=== PATIENT | female | born 1950 | race Caucasian/White ===

== ENCOUNTER → 2017-06-24 | Outpatient (CLI) | payer BC, MEDICARE ==
[2016-01-22 11:00] VITALS: BP 114/78
[~2017-06-24] MED LIST: ASPI-482 PO; ERGO500027 PO; LOVA20TA2 PO
--- NOTE | 2017-06-24 17:19 | KCIC ---
Bilateral digital screening mammograms: Reason for examination: Routine screening. A single left MLO view is available for comparison dated 10/03/2007. Interpretation was made with the benefit of CAD. The skin and nipples show no abnormalities. No abnormal axillary lymph nodes are seen. The breast parenchyma shows scattered fibroglandular density. (Breast density: Category B.) There is a small intramammary lymph node present at the 2:00 C position of the left breast which is unchanged. There are no other dominant masses, suspicious calcifications or architectural distortions. Impression: No evidence of malignancy. Recommend routine screening. BI-RADS Category 2: Benign. "Our facility is accredited by the [employer] Mammography [employer]." This patient's information has been entered into a reminder system for the patient to be notified with the results of her examination and a target date for the next mammogram. Electronically signed by: Michaelle Saldana MD (06/24/2017 5:15 PM) [id number]
== END | disposition home or self-care (01) ==
LOC: KCIC MAMMO 10:31
PROVIDERS: ATTEND Family Medicine
DX: Z12.31 Encounter for screening mammogram for malignant neoplasm of breast (principal)
CPT/HCPCS: G0202; 77067

== ENCOUNTER → 2019-05-09 | Outpatient (CLI) | payer MEDICARE ==
[2016-01-22 11:00] VITALS: BP 114/78
--- NOTE | 2019-05-10 15:20 | RAD ---
DATE: 05/09/2019 EXAM: MAMMO DONNIE SCREENING BILATERAL HISTORY: Routine screening COMPARISON: 01/29/2009, 06/24/2017 mammographic exams This study was interpreted with the benefit of Computerized Aided Detection (CAD). Breast Density: SCATTERED The breast parenchyma shows scattered fibroglandular densities. Breast parenchyma level B. FINDINGS: No suspicious calcifications, masses, or distortion in the interval. IMPRESSION: Stable BI-RADS CATEGORY: 1 NEGATIVE RECOMMENDED FOLLOW-UP: 12M 12 MONTH FOLLOW-UP PQRS compliance statement: Patient information was entered into a reminder system with a target due date for the next mammogram. Mammography is a sensitive method for finding small breast cancers, but it does not detect them all and is not a substitute for careful clinical examination. A negative mammogram does not negate a clinically suspicious finding and should not result in delay in biopsying a clinically suspicious abnormality. "Our facility is accredited by the [employer] Mammography [employer]."
== END | disposition home or self-care (01) ==
LOC: MAMMO 14:29
PROVIDERS: ATTEND Family Medicine
DX: Z12.31 Encounter for screening mammogram for malignant neoplasm of breast (principal)
CPT/HCPCS: 77063; 77067